=== PATIENT | male | born 1995 | race Caucasian/White ===

== ENCOUNTER 2017-11-22 11:26 | Emergency (ER) | payer MEDICAID ==
[~2017-11-22] VITALS: Ht 180.3 cm; Wt 90.7 kg
[2017-11-22 12:15] VITALS: BP 128/88
[2017-11-22 12:34] LABS: BASOPHILS % (AUTO) 0.8 % (0.0-2.0); EOSINOPHILS % (AUTO) 1.9 % (0.0-3.0); HEMATOCRIT 47.3 % (42.0-52.0); MEAN CORPUSCULAR VOLUME 85 FL (80-99); MONOCYTES % (AUTO) 8.9 % (1.0-10.0); NEUTROPHILS % (AUTO) 70.4 % (45.0-75.0); PLATELET COUNT 254 K/UL (150-450); RED BLOOD COUNT 5.53 M/UL (4.70-6.10); RED CELL DISTRIBUTION WIDTH 11.5 % (11.6-14.8); WHITE BLOOD COUNT 9.3 K/UL (4.8-10.8)
--- NOTE | 2017-11-22 12:43 | Emergency Room Report ---
History of Present Illness General Chief Complaint: General Complaint Source: Patient Present Illness HPI This patient presents for paranoia and hallucinations. He states he does have a long history of street drug use. He uses methamphetamine and over this past weekend he used a powder type substance is a hallucinogen called TCI. He states that he normally does have issues with anxiety, panic and has had voices in his head and hallucinations while he is not on drugs. However, he states that over the past week and his symptoms have been much more severe and debilitating. He states that he is seeing things and hallucinating. He states that he is seeing the window shatter and that police were shooting at him but there were no police there. He states that in the past he has been in mental health facilities in would blow off the treatment telling the psychiatrist that he just does meth and why he has problems. He states he would just try to get out of this treatment facilities as soon as possible. He is now accompanied by a telephone services sales representative from a new treatment facility that he is just starting today. This is a 3 month rehabilitation program that is in a lockdown inpatient unit. He is brought in because of palpitations and hallucinations. There are no other complaints. Allergies: Coded Allergies: No Known Allergies (Unverified , 11/22/17) Patient History Past Medical History: see triage record, psych hx Social History: Reports: drug use; Denies: smoking, alcohol use Reviewed Nursing Documentation: PMH: Agreed; PSxH: Agreed Nursing Documentation-PMH Past Medical History: No Stated History Review of Systems All Other Systems: negative except mentioned in HPI Physical Exam Vital Signs Date Time Temp Pulse Resp B/P (MAP) Pulse Ox O2 Delivery O2 Flow Rate FiO2 11/22/17 11:32 98.5 91 18 128/88 96 Room Air 98.4 Sp02 EP Interpretation: reviewed, normal General Appearance: no apparent distress, alert, GCS 15, non-toxic Head: normocephalic, atraumatic Eyes: bilateral eye normal inspection, bilateral eye PERRL ENT: hearing grossly normal, normal pharynx, no angioedema, normal voice Neck: full range of motion, supple/symm/no masses Respiratory: chest non-tender, lungs clear, normal breath sounds, no respiratory distress, no retraction, no accessory muscle use, speaking full sentences Cardiovascular #1: normal inspection, regular rate, rhythm, no edema Gastrointestinal: normal bowel sounds, non tender, soft, non-distended, no guarding, no rebound Rectal: deferred Musculoskeletal: back normal, gait/station normal, normal range of motion, non- tender Neurologic: alert, oriented x3, responsive, motor strength/tone normal, sensory intact, speech normal Psychiatric: judgement/insight normal, memory normal, mood/affect normal, no suicidal/homicidal ideation Skin: normal color, no rash, warm/dry, well hydrated Medical Decision Making Diagnostic Impression: Primary Impression: Hallucinations Additional Impression: Drug abuse, episodic use ER Course Patient presents with hallucinations and anxiety. This has been occurring after using hallucinogen street drugs. Patient is accompanied by a telephone services sales representative from an inpatient psychiatric facility. He is checking in for 3 months [facility]. He was given Geodon today for his symptoms. He was educated that until he is no longer using hallucinogen and stimulant drugs it is difficult to assess whether he has an underlying mental illness. Based on the patient's history he may have an underlying mental illness/psychosis. However, I cannot determine here in the emergency department. The patient underwent basic laboratory workup to include CBC, CMP, urinalysis and thyroid function testing. These were all non-contributory. The patient is medically cleared for inpatient psychiatric care. Laboratory Tests Test 11/22/17 11:20 11/22/17 11:40 White Blood Count 9.3 K/UL (4.8-10.8) Red Blood Count 5.53 M/UL (4.70-6.10) Hemoglobin 16.0 G/DL (14.2-18.0) Hematocrit 47.3 % (42.0-52.0) Mean Corpuscular Volume 85 FL (80-99) Mean Corpuscular Hemoglobin 28.9 PG (27.0-31.0) Mean Corpuscular Hemoglobin Concent 33.9 G/DL (32.0-36.0) Red Cell Distribution Width 11.5 % (11.6-14.8) L Platelet Count 254 K/UL (150-450) Mean Platelet Volume 6.6 FL (6.5-10.1) Neutrophils (%) (Auto) 70.4 % (45.0-75.0) Lymphocytes (%) (Auto) 18.0 % (20.0-45.0) L Monocytes (%) (Auto) 8.9 % (1.0-10.0) Eosinophils (%) (Auto) 1.9 % (0.0-3.0) Basophils (%) (Auto) 0.8 % (0.0-2.0) Sodium Level 136 MMOL/L (136-145) Potassium Level 3.8 MMOL/L (3.5-5.1) Chloride Level 102 MMOL/L (98-107) Carbon Dioxide Level 27 MMOL/L (21-32) Anion Gap 7 mmol/L (5-15) Blood Urea Nitrogen 12 mg/dL (7-18) Creatinine 0.8 MG/DL (0.55-1.30) Estimate Glomerular Filtration Rate > 60 mL/min (>60) Glucose Level 99 MG/DL (74-106) Calcium Level 9.2 MG/DL (8.5-10.1) Total Bilirubin 0.4 MG/DL (0.2-1.0) Aspartate Amino Transferase (AST) 17 U/L (15-37) Alanine Aminotransferase (ALT) 51 U/L (12-78) Alkaline Phosphatase 87 U/L (46-116) Total Protein 7.5 G/DL (6.4-8.2) Albumin 4.0 G/DL (3.4-5.0) Globulin 3.5 g/dL Albumin/Globulin Ratio 1.1 (1.0-2.7) Thyroid Stimulating Hormone (TSH) 2.507 uiU/mL (0.358-3.740) Salicylates Level 1.8 ug/mL (2.8-20) L Acetaminophen Level Pending Serum Alcohol Pending Urine Opiates Screen Negative (NEGATIVE) Urine Barbiturates Screen Negative (NEGATIVE) Phencyclidine (PCP) Screen Negative (NEGATIVE) Urine Amphetamines Screen Negative (NEGATIVE) Urine Benzodiazepines Screen Negative (NEGATIVE) Urine Cocaine Screen Negative (NEGATIVE) Urine Marijuana (THC) Screen Negative (NEGATIVE) EKG Diagnostic Results Rate: normal Rhythm: NSR ST Segments: no acute changes Rhythm Strip Diag. Results EP Interpretation: yes Rate: 80's Rhythm: NSR, no PVC's, no ectopy Last Vital Signs Date Time Temp Pulse Resp B/P (MAP) Pulse Ox O2 Delivery O2 Flow Rate FiO2 11/22/17 12:15 98.4 78 18 128/88 96 Room Air 98.4 Status: improved Disposition: XFER TO PSYCH HOSP/UNIT Condition: Stable Scripts No Active Prescriptions or Reported Meds Referrals: NOT CHOSEN IPA/,REFERRING (PCP) Chery Ballard DO Nov 22, 2017 12:43
[2017-11-22] MEDS ORDERED: Ziprasidone 20mg cap ORAL ONE (12:45)
[2017-11-22 12:52] LABS: ALANINE AMINOTRANSFERASE 51 U/L (12-78); ALBUMIN/GLOBULIN RATIO 1.1 (1.0-2.7); ALKALINE PHOSPHATASE 87 U/L (46-116); ANION GAP 7 mmol/L (5-15); ASPARTATE AMINO TRANSFERASE 17 U/L (15-37); BILIRUBIN,TOTAL 0.4 MG/DL (0.2-1.0); BLOOD UREA NITROGEN 12 mg/dL (7-18); CALCIUM 9.2 MG/DL (8.5-10.1); CARBON DIOXIDE 27 MMOL/L (21-32); CHLORIDE 102 MMOL/L (98-107); CREATININE 0.8 MG/DL (0.55-1.30); POTASSIUM 3.8 MMOL/L (3.5-5.1); SODIUM 136 MMOL/L (136-145)
[2017-11-22 13:48] VITALS: BP 128/88
--- NOTE | 2017-11-23 14:54 | Cardiology Report ---
APPROVED REPORT EKG Measurement Heart [id number] Normal sinus rhythm Incomplete right bundle branch block Borderline ECG
== END 2017-11-22 13:56 ==
LOC: EMR 11:53
DX: R44.3 Hallucinations, unspecified (principal); F15.10 Other stimulant abuse, uncomplicated; F16.10 Hallucinogen abuse, uncomplicated; F41.9 Anxiety disorder, unspecified
CPT/HCPCS: 36415; 80053; 80307; 80329; 84443; 85025; 93005; 99285